=== PATIENT | female | born 1990 | race Hispanic/Latino ===

== ENCOUNTER 2017-02-05 14:42 | Emergency (ER) | payer OTHER ==
[2017-02-05 16:17] LABS: Bilirubin Negative (Negative); Blood, Urine Large (Negative); Clarity Cloudy (Clear); Glucose, Urine (Dipstick) Negative (Negative); Leukocyte Negative (Negative); Nitrite Negative (Negative); Protein, Urine (Dipstick) Trace mg/dL (Neg-Trace); Specific Gravity, Urine 1.027 (1.002-1.036); pH, Urine 5.5 (5.0-9.0)
[2017-02-05 16:20] LABS: Bacteria/HPF 1+ HPF (None Seen); RBC/HPF 21-50 HPF (0-3); Squamous Epithelial 0-3 HPF (0-3); WBC/HPF 0-3 HPF (0-3)
--- NOTE | 2017-02-05 19:28 | ULT ---
TRANSABDOMINAL AND TRANSVAGINAL PELVIC ULTRASOUND: Indication: Vaginal bleeding. Technique: Grayscale, color doppler, vascular duplex and spectral analysis was performed. FINDINGS: The uterus measures 8.1 x 3.9 x 4.1 cm. No intrauterine gestation is evident. The endometrium is mode rately thickened with a small amount of fluid seen within the endometrial canal. The endometrial stri pe measures approximately 10 mm. No intrauterine gestational sac is identified. There is mild free fluid that is simple appearing within the cul-de-sac. The right ovary measures 3.0 x 2.1 x 1.9 cm. The left ovary measures 4.2 x 2.3 x 2.6 cm. There is nor mal flow to both ovaries. There is normal flow to both ovaries. There is incidental note of a right pelvic kidney. No hydronephrosis is seen involving the right pelv ic kidney. IMPRESSION: 1. Reported history of . No intrauterine gestational sac identified. 2. Mild free fluid within the pelvis. 3. Differential considerations include early , ectopic , or missed . Recomm end correlation with patient's Beta HCG level and consideration for clinical and sonographic follow u p. 4. Right pelvic kidney. POS: [facility]
== END 2017-02-05 17:50 | disposition home or self-care (01) ==
LOC: SCSER 14:42
DX: O20.9 Hemorrhage in early pregnancy, unspecified (principal); O99.211 Obesity complicating pregnancy, first trimester; E66.9 Obesity, unspecified; O99.341 Other mental disorders complicating pregnancy, first trimester; F41.9 Anxiety disorder, unspecified; Z3A.01 Less than 8 weeks gestation of pregnancy
CPT/HCPCS: 36415; 76856; 81003; 81015; 84702; 86850; 86900; 86901